=== PATIENT | female | born 1970 | race Caucasian/White ===

== ENCOUNTER → 2023-08-02 12:35 | Outpatient (REF) | payer OTHER, SELFPAY | LOC: HWWDC 12:35 | PROVIDERS: ATTENDING PHYSICIAN Family Medicine | DX: Z78.0 Asymptomatic menopausal state (principal); Z12.31 Encounter for screening mammogram for malignant neoplasm of breast | CPT/HCPCS: 77063; 77067; 77080 ==

== ENCOUNTER → 2023-10-25 07:18 | Outpatient (REF) | payer OTHER, SELFPAY | LOC: RAD 07:18 | PROVIDERS: ATTENDING PHYSICIAN Family Medicine | DX: E05.90 Thyrotoxicosis, unspecified without thyrotoxic crisis or storm (principal) | CPT/HCPCS: 78014; A9516 ==

== ENCOUNTER → 2023-10-28 13:37 | Outpatient (REF) | payer OTHER, SELFPAY | LOC: HWRAD 13:37 | PROVIDERS: ATTENDING PHYSICIAN Family Medicine | DX: E05.90 Thyrotoxicosis, unspecified without thyrotoxic crisis or storm (principal) | CPT/HCPCS: 76536 ==

== ENCOUNTER → 2024-02-17 11:42 | Outpatient (REF) | payer OTHER, SELFPAY | LOC: RAD 11:42 | PROVIDERS: ATTENDING PHYSICIAN Family Medicine | DX: M54.2 Cervicalgia (principal) | CPT/HCPCS: 72052 ==

== ENCOUNTER → 2024-03-29 09:19 | Outpatient (REF) | payer OTHER, SELFPAY | LOC: PAVMRI 09:19 | PROVIDERS: ATTENDING PHYSICIAN Family Medicine | DX: G44.84 Primary exertional headache (principal); R41.3 Other amnesia | CPT/HCPCS: 70544; 70553; A9575 ==